=== PATIENT | male | born 1970 | race Caucasian/White ===

== ENCOUNTER → 2019-11-23 10:06 | Outpatient (CLI) | payer BC, SELFPAY ==
--- NOTE | 2019-11-23 10:16 | XR_ITS ---
PROCEDURE: XR ANKLE RT MIN 3V CLINICAL INDICATION: RT ANKLE PAIN Posttraumatic pain and swelling COMPARISON: No exams were available for comparison FINDINGS: No obvious fracture or dislocation. There is a mildly prominent posterior talar process. Soft tissue swelling is present at the lateral malleolar region. IMPRESSION: Soft tissue swelling laterally otherwise negative Dictated by: Johnson Healy MD 11/23/2019 11:02 Electronically signed by Johnson Healy MD in [place] 11/23/2019 11:02
== END ==
PROVIDERS: PCP Nurse Practitioner Family; Visit Provider Nurse Practitioner Family
DX: M25.571 Pain in right ankle and joints of right foot (principal)
CPT/HCPCS: 73610

== ENCOUNTER → 2020-02-18 17:29 | Outpatient (CLI) | payer BC, SELFPAY ==
[2020-02-19 14:07] LABS: Coronavirus 19 IgM Antibody Negative (Negative)
[2020-02-19 14:17] LABS: Coronavirus 19 IgG Antibody Positive (Negative)
[2020-02-20 15:40] LABS: Covid-19 Nasal PCR Sendout Lex Positive
== END ==
PROVIDERS: PCP Internal Medicine Adolescent Medicine; Visit Provider Internal Medicine Adolescent Medicine
DX: U07.1 COVID-19 (principal); Z20.828 Contact with and (suspected) exposure to other viral communicable diseases
CPT/HCPCS: 36415; 86328; U0004

== ENCOUNTER → 2020-06-10 17:05 | Outpatient (CLI) | payer BC, SELFPAY ==
--- NOTE | 2020-06-10 17:15 | CT_ITS ---
PROCEDURE: CT ANGIO CHEST CLINCIAL INDICATION: SHORTNESS OF BREATH, TACHYCARDIA chest pressure, soa, tachycardia since this morning COMPARISON: CT REPEAT VIEW CT from 06/10/2020 TECHNIQUE: IV Contrast: 70ML Isovue 370 Axial images obtained with sagittal and coronal reformats. All CT scans at the facility use one or more dose reduction, viz: automated exposure control, ma/kV adjustment per patient size (including targeted exams where dose is matched to indication, i.e. head), or iterative reconstruction technique. FINDINGS: HEART AND MEDIASTINAL STRUCTURES: There is no evidence of aortic aneurysm or dissection. No evidence of central pulmonary embolus. The peripheral pulmonary arteries are not well opacified. No mediastinal or hilar mass. Coronary artery calcification is noted. The patient was asked to return for additional imaging. On repeat exam the pulmonary artery opacification with similar. LUNGS AND PLEURAL SPACES: There are mild atelectatic or fibrotic the changes in the left lung base BONY STRUCTURES: No acute bony abnormalities apparent. UPPER ABDOMEN: The right gastric artery arises from the aorta as a separate branch. ADDITIONAL FINDINGS: No other significant abnormalities. IMPRESSION: The no acute finding. No evidence of pulmonary embolus aortic aneurysm or dissection. The peripheral pulmonary arteries are not well opacified however, no central pulmonary embolus is evident. Coronary artery calcifications are noted. Dictated by: Johnson Healy MD 06/11/2020 05:38 Johnson Healy MD in [place] 06/11/2020 05:38
[2020-06-10 18:40] LABS: Basophils # 0.1 K/mm3 (0-0.2); Basophils % 0.5 % (0.1-2.0); Eosinophils # 0.2 K/mm3 (0.0-0.4); Eosinophils % 1.1 % (0.1-12.0); Hematocrit 52.9 % (42.0-52.0); Hemoglobin 17.3 g/dL (14.1-18.0); Lymphocytes # 2.4 K/mm3 (0.7-4.5); Lymphocytes % 17.7 % (10-50); Mean Corpuscular HGB Conc 32.6 g/dL (31.8-35.4); Mean Corpuscular Hemoglobin 29.1 pg (27.0-31.2); Mean Corpuscular Volume 89.1 fl (80-94); Mean Platelet Volume 7.7 fl (7.4-10.4); Monocytes # 0.7 K/mm3 (0.1-1.0); Neutrophils # 10.4 K/mm3 (1.8-7.8); Neutrophils % 75.7 % (37.0-80.0); Platelet Count 308 K/mm3 (142-424); Red Blood Count 5.94 M/mm3 (4.60-6.20); Red Cell Distribution Width 13.7 % (11.5-17.5); White Blood Count 13.7 K/mm3 (4.8-10.8)
[2020-06-10 19:37] LABS: Erythrocyte Sedimentation Rate 1 mm/hr (0-15)
[2020-06-10 19:44] LABS: Alanine Aminotransferase 33 U/L (12-78); Albumin Level 4.3 g/dl (3.5-5.0); Albumin/Globulin Ratio 1.6 (1.1-1.8); Alkaline Phosphatase 113 U/L (38-126); Anion Gap 16.7 mEq/L (5-15); Aspartate Amino Transferase 26 U/L (17-59); Bilirubin,Total 0.8 mg/dl (0.2-1.3); Blood Urea Nitrogen 15 mg/dl (9-20); Calcium 9.3 mg/dl (8.4-10.2); Carbon Dioxide 29 mmol/L (22.0-30.0); Chloride 99 mmol/L (98-107); Estimated Glomerular Filt Rate 90 ml/min (>60); GFR (African American) 109 ML/MIN (>60); Globulin 2.7 g/dL (1.3-3.2); Glucose 104 mg/dl (74-100); Potassium 5.7 mmoL/L (3.5-5.1); Sodium 139 mmol/L (136-145)
[2020-06-10 20:09] LABS: D-Dimer 0.48 ug/mL (0.15-8.0)
== END ==
PROVIDERS: PCP Internal Medicine Adolescent Medicine; Visit Provider Internal Medicine Adolescent Medicine
DX: R06.02 Shortness of breath (principal); R00.0 Tachycardia, unspecified
CPT/HCPCS: 36415; 71275; 80053; 85025; 85378; 85651; Q9967

== ENCOUNTER → 2020-09-27 13:21 | Outpatient (CLI) | payer BC, OTHER, SELFPAY ==
[2020-09-27 14:32] LABS: Coronavirus 19 IgG Antibody Positive (Negative); Coronavirus 19 IgM Antibody Negative (Negative)
== END ==
PROVIDERS: PCP Internal Medicine Adolescent Medicine; Visit Provider Internal Medicine Gastroenterology
DX: Z01.812 Encounter for preprocedural laboratory examination (principal)
CPT/HCPCS: 36415; 86328

== ENCOUNTER 2020-09-29 08:20 | Day surgery (SDC) | payer BC, OTHER, SELFPAY ==
[2020-09-23 10:38] VITALS: BMI 33.9
[2020-09-29 08:44] VITALS: BP 138/90; PULSE 80; RESP 16; TEMP 36.4; O2SAT 98
--- NOTE | 2020-09-29 09:17 | HMH.PROC ---
[facility] Procedure Note Procedure Note:: Upper Endoscopy Procedure Report: Esophagogastroduodenoscopy with cold biopsies and TTS balloon dilation Endoscopost: Jarvis Ko II, MD Referring Physician: Raymond Devine M.D. Date of Procedure: September 29, 2020 Equipment: Olympus GIF 190 standard upper endoscope Sedation: MAC sedation Indications: Mr. Rodrigues is a 49-year-old gentleman with dysphagia. He does feel that after eating certain foods they will get hung in the lower retrosternal region or epigastrium. He does have chronic heartburn and reflux for which he takes omeprazole 20 mg by mouth daily (OTC). This does control his symptoms. He does get some bloating and belching. This is his first upper endoscopy. Procedure: Prior to the procedure, a history and physical exam was performed, and patient's medications and allergies were reviewed. The risks, benefits and alternatives of the sedation and procedure were discussed with the patient. All questions were answered and informed consent was obtained. The patient was brought to the procedure room. Patient identification and proposed procedure were verified by the physician and the nurse. The patient was placed in a left lateral decubitus position and the scope was passed under direct vision. Throughout the procedure, the patient's blood pressure, pulse, and oxygen saturations were monitored continuously. The upper GI endoscopy was accomplished without difficulty. The patient tolerated the procedure well. Findings: The scope was passed directly into the upper esophagus and advanced to the third portion of the duodenum. The post bulbar duodenum and duodenal bulb were normal with normal mucosa and conniventes. The scope was withdrawn through a normal duodenal bulb and pylorus into the stomach. There was some bile reflux with linear reactive gastropathy of the antrum and body of the stomach. The remainder of the fundus of the stomach were grossly normal. Upon retroflexion there was a very small sliding 1 to 2 cm hiatal hernia. 2 biopsies were taken in the antrum and along the lesser curvature for histology to rule out gastritis and/or H pylori. The scope was then withdrawn into the esophagus. There was a serrated Z-line but no evidence of reflux esophagitis or Piedra's. Biopsies were taken at the GE junction. There were tertiary contractions and evidence of mild to moderate esophageal dysmotility. The entire esophagus was dilated to 60 Malaysian/20 mm with a TTS hydrostatic balloon. The remainder of the esophageal mucosa was normal. Impression: 1. Nonerosive GERD with moderate esophageal dysmotility and very small sliding (1 to 2 cm) hiatal hernia 2. Mild linear reactive gastropathy Plan: I will follow-up the biopsies. I do feel that the patient has primarily functional GERD created by gas pressure gradients. I do feel that he has some obstipation related symptoms. We will discuss treatment options. I will proceed with screening colonoscopy.
[2020-09-29 09:26] VITALS: O2SAT 97
--- NOTE | 2020-09-29 09:58 | P.PCN_ITS ---
[facility] Procedure Note Procedure Note:: Colonoscopy Procedure Report: Colonoscopy with cold biopsies and cold snare polypectomy Endoscopist: Jarvis Ko II, MD Referring physician: Raymond Devine M.D. Date of Procedure: September 29, 2020 Equipment: Olympus 190 variable stiffness pediatric colonoscope Sedation: MAC sedation Indication: Mr. Rodrigues is a 49-year-old gentleman who is here for initial screening colonoscopy. He does state that his brother had colon polyps. He reports no abdominal pain, weight loss, change in his bowel habits or rectal bleeding. He reports no family history of colon cancer. With his Achilles tendon repair a couple of months ago, he did have some brief constipation from the pain medication. At that time he had some minor hemorrhoidal bleeding. Procedure: Prior to the procedure, a history and physical exam was performed, and patient's medications and allergies were reviewed. The risks, benefits and alternatives of the sedation and procedure were discussed with the patient. All questions were answered and informed consent was obtained. The patient was brought to the procedure room. Patient identification and proposed procedure were verified by the physician and the nurse. The patient was placed in a left lateral decubitus position and the scope was passed under direct vision. Throughout the procedure, the patient's blood pressure, pulse, and oxygen saturations were monitored continuously. The colonoscopy was accomplished without difficulty. The patient tolerated the procedure well. Findings: On digital rectal examination there was normal rectal tone. There were no external hemorrhoids. The prostate 2-3+ was moderately firm (especially left upper margin) with mild asymmetry and no nodules. The colonoscope was introduced through the anal canal to the rectum and advanced to the cecum. The ileocecal valve and appendiceal orifice were identified. The scope was advanced a short distance into the ileum which did have a couple of aphthous erosions distally (possible NSAID enteropathy) and cold biopsies were taken from the ileum. The scope was then withdrawn into the colon. The cecum, ascending and transverse colon and mucosa were grossly normal. There were scattered diverticuli throughout the descending and sigmoid colon (LEFT colon). There were 2 polyps in the rectosigmoid that were 3 and 4 mm and both removed via cold snare polypectomy. The rectum itself was normal. Upon retroflexion within the rectum there were grade 1-2 internal hemorrhoids. The preparation was fair to good throughout with Sibley Preparation Score of 7 out of 9. There was some fiber plant residue that impaired visualization of a couple of areas. The cecal time was 13 minutes. Impression: 1. Diminutive colonic polyps x2?rule out hyperplastic polyps 2. Left-sided diverticulosis 3. Grade 1-2 internal hemorrhoids 4. Firm/asymmetry left upper lobe prostate Plan: I will follow up the polyp histology. If the polyps are hyperplastic, he will not require surveillance colonoscopy again for 10 years. I would encourage bulk fiber supplementation on a maintenance basis. I would recommend PSA testing today and routine digital RE for screening.
[2020-09-29 10:01] VITALS: BP 85/55; PULSE 77; RESP 18; TEMP 36.2; O2SAT 95
--- NOTE | 2020-09-29 10:09 | HMH.ANESCL ---
[facility] Anesthesia Checklist - Patient Identification Patient Identification: Arm Band - Structural Data Admitted From: Home Planned Operative Procedure/s: egd/colonoscopy Consent for Planned Operative Procedure(s) Verified: Yes Verified Documents: Surgical Consent, History and Physical - NPO Status Verified Time NPO: 00:00 - Additional verifications Anesthesia Reactions: No - Airway Assessment C-Spine Mobility Assessed: Yes (mp2) TMJ Mobility Assessed: Yes Dentition: Good Dentition - Neurological Assessment Level of Consciousness: Awake, Alert - Anesthesia Plan Anesthesia Risk discussed: Yes Anesthesia Plan: Verified ASA Class: II Anesthesia Type: MAC [facility] History I have reviewed the patient's past medical history: Yes Medical History: Reports:: Gastroesophageal Reflux Disease(GERD), Hyperlipidemia, Hypertension, Lung Disease (karthik-cpap hs) Denies:: Cancer, Diabetes Mellitus Type 1, Diabetes Mellitus Type 2, Internal Pacemaker, MRSA, Seizures *Have you ever received a pneumonia vaccine?: No *Have you received a flu vaccine this season?: Yes Other Medical History: Reports: Hypothyroidism Anesthesia experience/problems:: nac Other Surgeries: Yes: Other. No: Pacemaker Amputation: No Fractures: Yes (coccyx ) - *Social History Last grade of school completed: Some college Smoking Status: Light tobacco smoker Tobacco Type: smokeless tobacco # Packs/Day (cigarettes): 1 Alcohol Intake: current Alcohol Intake Frequency:: a few times a week Substance Use Type: denies use *Occupational Status:: employed Housing: house Household Members: spouse, family *Travel in the last 8 weeks: None Family Hx:: Diabetes, Cancer, Hyperlipidemia, Hypertension
[2020-09-29 10:11] VITALS: BP 92/66; PULSE 62; RESP 18; O2SAT 95
[2020-09-29 10:21] VITALS: BP 96/66; PULSE 61; RESP 18; O2SAT 100
[2020-09-29 10:44] VITALS: BP 104/78; PULSE 65; RESP 18; O2SAT 100
== END 2020-09-29 10:44 | disposition home or self-care (01) ==
LOC: OUTP 08:22
PROVIDERS: PCP Internal Medicine Adolescent Medicine; Visit Provider Internal Medicine Gastroenterology
PROC: 0DJ08ZZ Inspection of Upper Intestinal Tract, Via Natural or Artificial Opening Endoscopic (ICD-10-PCS; CPT 43235; principal; 2020-09-29 09:30)
DX: Z12.11 Encounter for screening for malignant neoplasm of colon (principal); K63.5 Polyp of colon; K57.30 Diverticulosis of large intestine without perforation or abscess without bleeding; K64.0 First degree hemorrhoids; K21.9 Gastro-esophageal reflux disease without esophagitis; K22.4 Dyskinesia of esophagus; K44.9 Diaphragmatic hernia without obstruction or gangrene; K31.9 Disease of stomach and duodenum, unspecified; Z83.71 Family history of colonic polyps; I10 Essential (primary) hypertension; E78.5 Hyperlipidemia, unspecified; G47.33 Obstructive sleep apnea (adult) (pediatric)
CPT/HCPCS: 43239; 43249; 45380; 45385; C1726

== ENCOUNTER 2020-12-18 09:00 | Outpatient (RCR) | payer BC, OTHER, SELFPAY ==
--- NOTE | 2020-10-21 10:25 | HMH.PTOPEV ---
PT Outpatient Evaluation Rehab PT Outpatient Evaluation Start: 10/21/20 08:38 Freq: Status: Active Protocol: Document 10/21/20 08:38 RAQUEL (Rec: 10/21/20 10:25 PDESEROUX [id number]) Electronically Signed By Pedro Mckeon, SANDEEP 10/21/20 08:38 Outpatient Therapy Subjective History Subjective History Pt. is a 49 year old male who presents to outpatient PT clinic w/ complaints of subacute and constant LLE achilles tendon and ft. P! s/p LLE achilles tendon repair on 08/13/20. Pt. reports SEVERINO through wear and tear overtime. Pt. reports donning a cast post surgery until 09/22/20, then ambulating w/ a single crutch/ SPC. Pt. reports currently ambulating w/ a single crutch PRN at this time. Pt. reports symptom worsen during the night and in the morning getting out of bed. Pt. reports symptom relief w/ activity including ambulation, but states increased stiffness w/ prolonged ambulation. Pt. RTMD 11/10/20. Current medications include Aleve, Synthroid, Crestor, Vyvanse, fish oil, and a multi -vitamin. PMH includes Hypothyroidism and Hyperlipidemia, denies cancer/ pacemaker. Chief Complaint Pain,Stiff,Swelling Symptom Type Ache,Throb,Sharp,Tingling, Shooting Symptoms Relieved By Rest/Positioning,Brace/Support ,OTC Meds,Activity Symptoms Aggravated By Sitting,Standing,Physical Activity,Twisting,Walking Prior Functional Limitations None Current Functional Limitations Housework,Sleeping,Standing, Sitting,Squatting,Recreation Activity,Walking,Stairs, Balance Symptom Description Constant but Variable Level of pain today (0-10) 1 Pain scale - at its best (0-10) 1 Pain scale - at its worst (0-10) 6 Ankle/Foot Eval Gait Observation General Gait Pattern Observation Antalgic Gait,Decrease Weight
== END 2021-01-19 17:00 | disposition home or self-care (01) ==
LOC: PT.CARL 09:00
PROVIDERS: PCP Internal Medicine Adolescent Medicine; Visit Provider Internal Medicine Adolescent Medicine
DX: M76.62 Achilles tendinitis, left leg; Z98.890 Other specified postprocedural states
CPT/HCPCS: 97010; 97014; 97033; 97035; 97110; 97112; 97140; 97163; 97164; G0283

== ENCOUNTER → 2021-02-26 18:48 | Outpatient (CLI) | payer BC, OTHER, SELFPAY ==
[2021-02-26 19:43] LABS: Alanine Aminotransferase 39 U/L (12-78); Albumin Level 4.2 g/dl (3.5-5.0); Albumin/Globulin Ratio 1.6 (1.1-1.8); Alkaline Phosphatase 111 U/L (38-126); Anion Gap 13.8 mEq/L (5-15); Aspartate Amino Transferase 31 U/L (17-59); Bilirubin,Total 0.8 mg/dl (0.2-1.3); Blood Urea Nitrogen 12 mg/dl (9-20); Calcium 9.1 mg/dl (8.4-10.2); Carbon Dioxide 28 mmol/L (22.0-30.0); Chloride 103 mmol/L (98-107); Cholesterol 159 mg/dl (140-200); Estimated Glomerular Filt Rate 90 ml/min (>60); GFR (African American) 109 ML/MIN (>60); Globulin 2.7 g/dL (1.3-3.2); Glucose 99 mg/dl (74-100); HDL Cholesterol 40 mg/dl (40-60); Potassium 4.8 mmoL/L (3.5-5.1); Sodium 140 mmol/L (136-145); Total Protein,Serum 6.9 g/dl (6.3-8.2); Triglycerides 106 mg/dl (30-150); VLDL Cholesterol 21 mg/dL (0-40)
[2021-02-26 19:54] LABS: Direct LDL Cholesterol 97.13 mg/dL (100-129)
[2021-02-26 20:14] LABS: Thyroid Stimulating Hormone 7.26 uIU/mL (0.465-4.68)
== END ==
PROVIDERS: Visit Provider Internal Medicine Adolescent Medicine
DX: E03.9 Hypothyroidism, unspecified (principal); E78.5 Hyperlipidemia, unspecified
CPT/HCPCS: 80053; 80061; 84443

== ENCOUNTER → 2021-05-28 17:43 | Outpatient (CLI) | payer BC, OTHER, SELFPAY ==
[2021-05-28 20:22] LABS: Thyroid Stimulating Hormone 2.14 uIU/mL (0.465-4.68)
== END ==
PROVIDERS: Visit Provider Internal Medicine Adolescent Medicine
DX: E03.9 Hypothyroidism, unspecified (principal)
CPT/HCPCS: 84443

== ENCOUNTER → 2022-10-28 23:22 | Outpatient (CLI) | payer BC, SELFPAY ==
[2022-10-28 16:49] LABS: Basophils % 0.3 % (0.1-2.0); Eosinophils # 0.2 K/mm3 (0.0-0.4); Eosinophils % 1.7 % (0.1-12.0); Hematocrit 50.4 % (42.0-52.0); Hemoglobin 16.4 g/dL (14.1-18.0); Lymphocytes % 22.2 % (10-50); Mean Corpuscular HGB Conc 32.4 g/dL (31.8-35.4); Mean Corpuscular Hemoglobin 28.5 pg (27.0-31.2); Mean Corpuscular Volume 87.8 fl (80-94); Mean Platelet Volume 9.9 fl (7.4-10.4); Monocytes # 0.5 K/mm3 (0.1-1.0); Monocytes % 4.9 % (1.7-9.3); Neutrophils # 6.5 K/mm3 (1.8-7.8); Neutrophils % 70.9 % (37.0-80.0); Platelet Count 300 K/mm3 (142-424); Red Blood Count 5.75 M/mm3 (4.60-6.20); Red Cell Distribution Width 13.7 % (11.5-17.5); White Blood Count 9.2 K/mm3 (4.8-10.8)
[2022-10-28 17:16] LABS: Alanine Aminotransferase 37 U/L (12-78); Albumin Level 4.3 g/dl (3.5-5.0); Albumin/Globulin Ratio 1.7 (1.1-1.8); Alkaline Phosphatase 105 U/L (38-126); Anion Gap 12.3 mEq/L (5-15); Aspartate Amino Transferase 32 U/L (17-59); Bilirubin,Total 0.8 mg/dl (0.2-1.3); Blood Urea Nitrogen 17 mg/dl (9-20); Calcium 8.9 mg/dl (8.4-10.2); Carbon Dioxide 23 mmol/L (22.0-30.0); Chloride 103 mmol/L (98-107); Chol/HDL Ratio 5.4 (1-3.5); Cholesterol 196 mg/dl (140-200); Estimated Glomerular Filt Rate 119 ml/min (>60); GFR (African American) 144 ML/MIN (>60); Globulin 2.6 g/dL (1.3-3.2); Glucose 98 mg/dl (74-100); HDL Cholesterol 36 mg/dl (40-60); Potassium 4.3 mmoL/L (3.5-5.1); Sodium 134 mmol/L (136-145); Total Protein,Serum 6.9 g/dl (6.3-8.2); Triglycerides 89 mg/dl (30-150); VLDL Cholesterol 18 mg/dL (0-40)
[2022-10-28 17:27] LABS: Direct LDL Cholesterol 126.64 mg/dL (100-129)
[2022-10-28 17:34] LABS: 25-OH Vitamin D, Total 50.9 ng/mL (30-100)
[2022-10-28 17:47] LABS: Thyroid Stimulating Hormone 1.49 uIU/mL (0.465-4.68)
[2022-10-28 20:03] LABS: Hemoglobin A1C 8.1 % (4.0-6.0)
== END ==
PROVIDERS: PCP Family Medicine; Visit Provider Family Medicine
DX: Z00.00 Encounter for general adult medical examination without abnormal findings (principal); E03.9 Hypothyroidism, unspecified; R73.03 Prediabetes; E78.5 Hyperlipidemia, unspecified; R30.0 Dysuria; E66.9 Obesity, unspecified; Z68.36 Body mass index [BMI] 36.0-36.9, adult; Z12.5 Encounter for screening for malignant neoplasm of prostate
CPT/HCPCS: 80053; 80061; 82306; 83036; 84443; 85025; G0103

== ENCOUNTER → 2022-11-30 23:32 | Outpatient (CLI) | payer BC, SELFPAY ==
[2022-11-30 17:37] LABS: Hemoglobin A1C 5.4 % (4.0-6.0)
== END ==
PROVIDERS: PCP Family Medicine; Visit Provider Family Medicine
DX: R73.03 Prediabetes (principal)
CPT/HCPCS: 83036

== ENCOUNTER → 2023-04-13 06:40 | Outpatient (CLI) | payer BC, SELFPAY ==
[2023-04-13 16:58] LABS: Basophils % 0.3 % (0.1-2.0); Eosinophils # 0.1 K/mm3 (0.0-0.4); Eosinophils % 0.9 % (0.1-12.0); Hematocrit 52.1 % (42.0-52.0); Hemoglobin 16.1 g/dL (14.1-18.0); Lymphocytes # 2.4 K/mm3 (0.7-4.5); Lymphocytes % 23.7 % (10-50); Mean Corpuscular HGB Conc 30.8 g/dL (31.8-35.4); Mean Corpuscular Hemoglobin 27.7 pg (27.0-31.2); Mean Corpuscular Volume 89.9 fl (80-94); Mean Platelet Volume 9.7 fl (7.4-10.4); Monocytes # 0.6 K/mm3 (0.1-1.0); Monocytes % 5.6 % (1.7-9.3); Neutrophils # 7.1 K/mm3 (1.8-7.8); Neutrophils % 69.6 % (37.0-80.0); Platelet Count 315 K/mm3 (142-424); Red Cell Distribution Width 13.7 % (11.5-17.5); White Blood Count 10.2 K/mm3 (4.8-10.8)
[2023-04-13 17:00] LABS: Chloride 109 mmol/L (98-107); Potassium 4.8 mmoL/L (3.5-5.1); Sodium 142 mmol/L (136-145)
[2023-04-13 17:02] LABS: Alanine Aminotransferase 34 U/L (12-78); Albumin Level 3.8 g/dl (3.5-5.0); Alkaline Phosphatase 110 U/L (38-126); Aspartate Amino Transferase 39 U/L (17-59); Bilirubin,Total 0.5 mg/dl (0.2-1.3); Blood Urea Nitrogen 13 mg/dl (9-20); Estimated Glomerular Filt Rate 89 ml/min (>60); GFR (African American) 108 ML/MIN (>60)
[2023-04-13 17:03] LABS: Albumin/Globulin Ratio 1.4 (1.1-1.8); Anion Gap 13.8 mEq/L (5-15); Calcium 8.8 mg/dl (8.4-10.2); Carbon Dioxide 24 mmol/L (22.0-30.0); Chol/HDL Ratio 4.3 (1-3.5); Cholesterol 139 mg/dl (140-200); Globulin 2.7 g/dL (1.3-3.2); Glucose 112 mg/dl (74-100); HDL Cholesterol 32 mg/dl (40-60); Total Protein,Serum 6.5 g/dl (6.3-8.2); Triglycerides 103 mg/dl (30-150); VLDL Cholesterol 21 mg/dL (0-40)
[2023-04-13 17:14] LABS: Direct LDL Cholesterol 77.55 mg/dL (100-129)
[2023-04-13 17:50] LABS: Hemoglobin A1C 5.5 % (4.0-6.0)
[2023-04-13 18:48] LABS: Thyroid Stimulating Hormone 1.48 uIU/mL (0.465-4.68)
--- OUTSIDE RECORDS SUMMARY | 2023-04-27 06:43 | XMS_ITS | Patient Health Record ---
Author Name Unknown Organization [facility] D [place] Address [address] [place] [address] Care Team Providers Care Sample Mounter Name Role Phone Raymond Devine Primary Care Provider ALLERGIES No Known Allergies RESULTS Component Value Reference Range Notes CBC With Platelet And Differ ential Reviewed date:05/14/2022 10:56:18 AM Interpretation: Performing Lab: Notes/Report: Test performed by [facility] [address] [place] [address] , [address], [place] [address] Jono Mckeon MD, [facility] CLIA: [id number] WBC 9.2 3.8-11.5 K/uL Red Blood Cell Count (RBC) 5.83 4.20-5.70 M/mm 3 Hemoglobin (Hgb) 16.6 13.1-17.5 gm/dL Hematocrit (HCT) 48.8 39.0-51.0 % MCV 83.7 79.0-99.0 fL MCH 28.5 26.9-35.0 pg MCHC 34.0 30.4-34.8 g/dL RDW 39.7 38.2-53.0 fL Platelet Count 341 137-397 K/cumm Neutrophils Automated 68.9 41.0-77.0 % Lymphocytes Automated 21.9 14.0-48.0 % Monocytes Automated 7.3 4.0-13.0 % Eosinophils Automated 1.3 0.0-8.0 % Basophils Automated 0.4 0.0-1.5 % Immature Granulocyte Automated 0.2 0.0-1.0 % Comprehensive Metabolic Pane l (CMP) Reviewed date:05/14/2022 10:56:18 AM Interpretation: Performing Lab: Notes/Report: Test performed by [facility] [address] [place] [address]
== END ==
PROVIDERS: PCP Family Medicine; Visit Provider Family Medicine
DX: R73.03 Prediabetes (principal); E78.5 Hyperlipidemia, unspecified; E03.9 Hypothyroidism, unspecified
CPT/HCPCS: 80053; 80061; 83036; 84443; 85025

== ENCOUNTER 2023-11-29 10:18 | Outpatient (CLI) | payer BC, SELFPAY ==
[2023-11-29 21:41] LABS: Hemoglobin A1C 5.9 % (4.0-6.0)
== END 2023-11-29 23:59 | disposition home or self-care (01) ==
LOC: LAB.DROPOF 11-30 10:19
PROVIDERS: PCP Family Medicine; Visit Provider Family Medicine
DX: R73.03 Prediabetes (principal)
CPT/HCPCS: 83036

== ENCOUNTER 2024-03-21 09:42 | Outpatient (CLI) | payer BC, SELFPAY ==
[2024-03-21 17:25] LABS: Alanine Aminotransferase 29 U/L (12-78); Albumin Level 3.9 g/dl (3.5-5.0); Albumin/Globulin Ratio 1.3 (1.1-1.8); Alkaline Phosphatase 92 U/L (38-126); Anion Gap 11.6 mEq/L (5-15); Aspartate Amino Transferase 32 U/L (17-59); Bilirubin,Total 0.4 mg/dl (0.2-1.3); Blood Urea Nitrogen 8 mg/dl (9-20); Calcium 9.2 mg/dl (8.4-10.2); Carbon Dioxide 26 mmol/L (22.0-30.0); Chloride 107 mmol/L (98-107); Chol/HDL Ratio 3.3 (1-3.5); Cholesterol 115 mg/dl (140-200); Estimated Glomerular Filt Rate 141 ml/min (>60); GFR (African American) 171 ML/MIN (>60); Globulin 2.9 g/dL (1.3-3.2); Glucose 98 mg/dl (74-100); HDL Cholesterol 35 mg/dl (40-60); Potassium 4.6 mmoL/L (3.5-5.1); Sodium 140 mmol/L (136-145); Total Protein,Serum 6.8 g/dl (6.3-8.2); Triglycerides 81 mg/dl (30-150); VLDL Cholesterol 16 mg/dL (0-40)
[2024-03-21 17:36] LABS: Direct LDL Cholesterol 64.82 mg/dL (100-129)
[2024-03-21 17:56] LABS: Thyroid Stimulating Hormone 0.65 uIU/mL (0.465-4.68)
== END 2024-03-21 23:59 | disposition home or self-care (01) ==
LOC: LAB.DROPOF 03-22 09:42
PROVIDERS: PCP Family Medicine; Visit Provider Family Medicine
DX: E78.5 Hyperlipidemia, unspecified (principal)
CPT/HCPCS: 80053; 80061; 84443

== ENCOUNTER 2025-04-25 15:00 | Outpatient (CLI) | payer BC, SELFPAY ==
--- OUTSIDE RECORDS SUMMARY | 2024-10-27 17:30 | XMS_ITS ---
Author Organization [facility] D [place] Address [address] [facility] [address] [place] [address] Care Team Providers Care Flotation Operator Name Role Phone Raymond Devine Primary Care Provider Migration, Provider Unavailable Unavailable [facility] Encounter Medications Medication SIG (Take, Route, Frequency, Duration) Notes Start Date End Date Status Multivitamin MULTIPLE VITAMINS 1 CAP(S) ORALLY ONCE A DAY; Duration: 30 DAY(S) *Please review and pick correct [facility]ati [facility]. If intended option is not shown, discontinue and re-order from Quick Search* Active Fish Oil 1000 MG PO QD *Please review and pick correct strength-formulati on from [employer] options. If intended option is not shown, discontinue and re-order from Quick Search* Active Flonase Allergy Relief 50 MCG/ACT 1 spray(s) intranasally once a day Active FLEXERIL 10 MG 1 TAB(S) ORALLY 3 TIMES A DAY PRN MUSCLE SPASM; Duration: 5 DAY(S) prn *Please review for potential replacement for e-prescription and drug interaction check* 01/13/2021 Active Aspirin 81 MG 1 tab(s) orally once a day; Duration: 30 day(s) Active Livalo 2 MG 1 TAB ORAL ONCE DAILY; Duration: 30 DAYS *Please review and pick correct strength-formulati on from [employer] options. If intended option is not shown, discontinue and re-order from Quick Search* 05/14/2022 Active Levothyroxine Sodium 100 MCG 1 tab(s) orally once a day; Duration: 90 days Active Red Yeast Rice 600 MG 2 cap(s) orally once a day; Duration: 30 day(s) Active Concerta 54 MG TAKE 1 TABLET BY MOUTH EVERY MORNING 30 orally once a day (in the morning); Duration: 30 day(s) 09/23/2022 Active Omeprazole 20 MG 1 cap(s) orally once a day; Duration: 30 day(s) Active oxyBUTYnin Chloride ER 5 MG 1 tab(s) orally once a day; Duration: 90 days Active Encounters Encounter Location Date Provider Diagnosis [facility] [place] [address] [place], [place] [address] 10/27/2024 Provider Migration Plan Of Treatment Medication Medication Name Sig Start Date Stop Date Notes Livalo 2 MG 1 TAB ORAL ONCE DAILY; Duration: 30 DAYS 05/14/2022 *Please review and pick correct strength-formulation from [employer] options. If intended option is not shown, discontinue and re-order from Quick Search* Levothyroxine Sodium 100 MCG 1 tab(s) orally once a day; Duration: 90 days Concerta 54 MG TAKE 1 TABLET BY MOUTH EVERY MORNING 30 orally once a day (in the morning); Duration: 30 day(s) 09/23/2022 Progress Notes * Rudolph IRBY CDOB:[birth year] (54 yo M)Acc No.[id number]:10/27/2024 Patient: Rudolph WELLINGTON Provider: Maliha price Migration :1970 A ge:53 Y S ex:Male Date:10/27/2024 Address:[address] [place] [address] [place], [id number] Pcp:Raymond Devine Subjective: * Chief Complaints: * 1 . Multum To Medispan Conversion Encounter. * Medical History: * Medications: T aking Red Yeast Rice 600 MG Capsule 2 cap(s) orally once a day , Taking Flonase Allergy Relief 50 MCG/ACT Suspension 1 spray(s) intranasally once a day , Taking Fish Oil 1000 MG PO QD , Notes to Pharmacist: *Please review and pick correct strength-formulation from Med[employer]pan options. If intended option is not shown, discontinue and re-order from Quick Search*, Taking Multivitamin MULTIPLE VITAMINS CAPSULE 1 CAP(S) ORALLY ONCE A DAY , Notes to Pharmacist: *Please review and pick correct strength-formulation from [employer] options. If intended option is not shown, discontinue and re-order from Quick Search*, Taking Aspirin 81 MG Tablet Delayed Release 1 tab(s) orally once a day , Taking FLEXERIL 10 MG TABLET 1 TAB(S) ORALLY 3 TIMES A DAY PRN MUSCLE SPASM , Notes to Pharmacist: prn *Please review for potential replacement for e-prescription and drug interaction check*, Taking oxyBUTYnin Chloride ER 5 MG Tablet Extended Release 24 Hour 1 tab(s) orally once a day , Taking Omeprazole 20 MG Capsule Delayed Release 1 cap(s) orally once a day Objective: * Vitals: Assessment: Plan: * Treatment: * * Electronic signature of Manju roper Migration on 04/26/2025 at 10:47 AM EDT Sign off status: Pending * Provider: Maliha price Migration Date: 0 10/27/2024 Generated for Elizabeth avelar/Lauro/Juan on: 10:47 AM EDT
[2025-04-25 20:30] LABS: Hematocrit 45.6 % (42.0-52.0); Hemoglobin 14.7 g/dL (14.1-18.0); Immature Granulocytes % 0.4 %; Mean Corpuscular HGB Conc 32.2 g/dL (31.8-35.4); Mean Corpuscular Hemoglobin 28.1 pg (27.0-31.2); Mean Corpuscular Volume 87.0 fl (80-94); Nucleated Red Blood Cells % 0 %; Platelet Count 261 K/mm3 (142-424); Red Blood Count 5.24 M/mm3 (4.60-6.20); Red Cell Distribution Width-SD 43.1 fL; White Blood Count 7.8 K/mm3 (4.8-10.8)
[2025-04-25 21:00] LABS: Alanine Aminotransferase 48 U/L (12-78); Albumin Level 3.8 g/dl (3.5-5.0); Albumin/Globulin Ratio 1.7 (1.1-1.8); Alkaline Phosphatase 122 U/L (38-126); Anion Gap 17.1 mEq/L (5-15); Aspartate Amino Transferase 46 U/L (17-59); Bilirubin,Total 0.5 mg/dl (0.2-1.3); Blood Urea Nitrogen 8 mg/dl (9-20); Calcium 8.7 mg/dl (8.4-10.2); Carbon Dioxide 23 mmol/L (22.0-30.0); Chloride 105 mmol/L (98-107); Creatinine,Serum 0.70 mg/dl (0.66-1.25); Estimated Glomerular Filt Rate 118 ml/min (>60); GFR (African American) 143 ML/MIN (>60); Globulin 2.3 g/dL (1.3-3.2); Glucose 116 mg/dl (74-100); Potassium 4.1 mmoL/L (3.5-5.1); Sodium 141 mmol/L (136-145); Total Protein,Serum 6.1 g/dl (6.3-8.2)
[2025-04-25 21:26] LABS: Hemoglobin A1C 5.7 % (4.0-6.0)
[2025-04-25 21:28] LABS: Thyroid Stimulating Hormone 1.04 uIU/mL (0.465-4.68)
[2025-04-25 21:46] LABS: Hepatitis C Ab Qual. W/ RFX NEGATIVE (Negative)
--- OUTSIDE RECORDS SUMMARY | 2025-04-26 10:47 | XMS_ITS | Patient Health Record ---
Author Organization [facility] D [place] Address [address] [place] [address] Care Team Providers Care Product Management Consultant Name Role Phone Raymond Devine Primary Care Provider Migration, Provider Unavailable Unavailable Allergies No Known Allergies Medications Medication SIG (Take, Route, Frequency, Duration) Notes Start Date End Date Status Livalo 2 MG 1 TAB ORAL ONCE DAILY; Duration: 30 DAYS *Please review and pick correct strength-formulati on from [employer] options. If intended option is not shown, discontinue and re-order from Quick Search* 05/14/2022 Active Multivitamin MULTIPLE VITAMINS 1 CAP(S) ORALLY ONCE A DAY; Duration: 30 DAY(S) *Please review and pick correct strength-formulati on from [employer] options. If intended option is not shown, discontinue and re-order from Quick Search* Active Fish Oil 1000 MG PO QD *Please review and pick correct strength-formulati on from [employer] options. If intended option is not shown, discontinue and re-order from Quick Search* Active Levothyroxine Sodium 100 MCG 1 tab(s) orally once a day; Duration: 90 days Active Flonase Allergy Relief 50 MCG/ACT 1 spray(s) intranasally once a day Active Red Yeast Rice 600 MG 2 cap(s) orally once a day; Duration: 30 day(s) Active Concerta 54 MG TAKE 1 TABLET BY MOUTH EVERY MORNING 30 orally once a day (in the morning); Duration: 30 day(s) 09/23/2022 Active FLEXERIL 10 MG 1 TAB(S) ORALLY 3 TIMES A DAY PRN MUSCLE SPASM; Duration: 5 DAY(S) prn *Please review for potential replacement for e-prescription and drug interaction check* 01/13/2021 Active Aspirin 81 MG 1 tab(s) orally once a day; Duration: 30 day(s) Active oxyBUTYnin Chloride ER 5 MG 1 tab(s) orally once a day; Duration: 90 days Active Omeprazole 20 MG 1 cap(s) orally once a day; Duration: 30 day(s) Active Immunizations Vaccine Route Administration Date Status Comme nts Influenza-Fluzone 3+years (NON-MEDICARE) IM Intramuscular 05/31/2017 Administered FLUZONE 6MO - OLDER IM Intramuscular 04/25/2020 Administer ed Boostrix IM Intramuscular 07/08/2020 Administered Problems Problem Type SNOMED Code ICD Code Onset Dates Problem Status W/U Status Risk Notes Problem Obese class I (finding) (061985525073342) Obesity (BMI 30.0-34.9) (E66.9) Active confirmed Problem Hypothyroidism (26676739) Hypothyroidism (acquired) (E03.9) Active confirmed Problem Hyperlipidemia (54472772) Hyperlipemia, idiopathic familial (E78.5) Active confirmed Problem Gastroesophageal reflux disease (953271527) GERD without esophagitis (K21.9) Active confirmed Problem Obstructive sleep apnea (10362508) Obstructive sleep apnea (G47.33) Active confirmed Problem Hypoglycemia (250698609) Hypoglycemia (E16.2) Active confirmed Problem Attention deficit hyperactivity disorder, predominantly inattentive type (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) Adult ADHD (F90.0) Active confirmed Problem Right shoulder strain (S46.911A) Active confirmed Problem Lower urinary tract symptoms due to benign prostatic hypertrophy (00078658884942) Benign prostatic hyperplasia with lower urinary tract symptoms (N40.1) Active confirmed Problem Tingling of skin (215482016) Tingling of skin (R20.2) Active confirmed Problem Esophageal dysphagia (75208367) Esophageal dysphagia (R13.10) Active confirmed Encounters Encounter Location Date Provider Diagnosis [facility] [place] [address] [place] [address] 10/27/2024 Provider Migration Plan Of Treatment Pending Test Test Name Order Date Urinalysis 06/17/2014 Physical Therapy 12/23/2014 Physical Therapy 10/17/2020 C-CBC 10/16/2020 C-CBC 02/01/2017 C-CBC 04/03/2020 C-CMP 04/03/2020 C-CMP 02/01/2017 C-CMP 10/16/2020 C-LIPID PANEL 04/03/2020 C-TSH 04/03/2020 C-TSH 10/16/2020 C-TSH 02/01/2017 C-PSA 10/16/2020 C-VITAMIN B12 02/01/2017 C-VITAMIN D, 1,25-DIHYDROXY 02/01/2017 C-HGBA1C 02/01/2017 C-HGBA1C 04/03/2020 Rapid Flu, A 05/13/2015 Rapid Flu, B 05/13/2015 VENIPUNCT, ROUTINE* 02/13/2016 M-D-Dimer 06/10/2020 Rapid Covid Antigen 02/23/2021 Future Test Test Name Order Date M-Comprehensive Metabolic Panel 06/24/20 M-Lipid Panel 06/24/2020 M-Thyroid Stimulating Hormone 06/24/2020 Insurance Providers Payer Name Payer Address Payer Phone Subscriber Number Group Number Insured Name Patient Relationship to Insured Coverage Start Date Coverage End Date [facility] [address] [place] [address] [id number] Rudolph Rodrigues Self - patient is the insured [facility] [address] [place] [address] [id number] Rudolph Rodrigues Self - patient is the insured Medications Administered Medication Instructions Date of Administration Dosage Notes Ceftriaxone 500 08/29/2013 1 g Triamcinolone Acetonide 40mg Injection 12/12/2020 1 mL Kenalog 08/29/2013 2 mL Kenalog 05/13/2015 1 mL Medical (General) History Medical History History ICD Code gerd ADD Chronic Right shoulder pain HLD Hypothyroidism EGD with nonerosive GERD 2-21 C-scope wtih hyperplastic polyps 2-21 Surgical History Surgery Date(Month/Year) oral left achilles 07/2020
--- OUTSIDE RECORDS SUMMARY | 2025-04-26 10:47 | XMS_ITS | Clinical Summary ---
Author Organization [facility] Address [address] [place] [address] Care Team Providers Care Firer Marine Name Role Phone Cornell Irby MD Primary Care Provider [phone]- [phone] Allergies No known active allergies Medications levothyroxine (SYNTHROID, LEVOTHROID) 75 MCG tablet Take 1 tablet by mouth Daily. Active rosuvastatin (CRESTOR) 20 MG tablet Take 1 tablet by mouth Daily. Active multivitamin with minerals (MULTIVITAMIN ADULT PO) Take 1 tablet by mouth Daily. Active [place]-3 Fatty Acids (Fish Oil) 1200 MG capsule delayed-release Take 1,400 g/day by mouth Daily. Active Vitamin D, Cholecalciferol , (CHOLECALCIFERO L) 10 MCG (400 UNIT) tablet Take 1 tablet by mouth Daily. Active omeprazole (priLOSEC) 20 MG capsule Take 1 capsule by mouth Daily. Active aspirin 81 MG EC tablet Take 1 tablet by mouth Daily. Active fluticasone (FLONASE) 50 MCG/ACT nasal spray Administer 2 sprays into the nostril(s) as directed by provider Daily. Active methylphenidate 54 MG CR tablet Take 1 tablet by mouth Every Morning 4 Active Mounjaro 2.5 MG/0.5ML solution pen-injector pen Inject 5 mg under the skin into the appropriate area as directed 1 (One) Time Per Week. LAST DOSE 08/10/24 4 Active cetirizine (zyrTEC) 10 MG tablet Take 1 tablet by mouth Daily. Active nitrofurantoin, macrocrystal-mo nohydrate, (Macrobid) 100 MG capsuleIndicati ons:Lower urinary tract symptoms (LUTS) Take 1 capsule by mouth 2 (Two) Times a Day. 14 capsule 08/21/2024 9:19 AM EST 5 Active Additional Information Patient not taking.Reported on 12/14/2024 oxybutynin XL (DITROPAN-XL) 5 MG 24 hr tabletIndicatio ns:Lower urinary tract symptoms (LUTS) Take 1 tablet by mouth Daily as needed for BLADDER SPASM 14 tablet 08/21/2024 9:19 AM EST 5 Active Additional Information Patient not taking.Reported on 12/14/2024 phenazopyridine (Pyridium) 200 MG tabletIndicatio ns:Lower urinary tract symptoms (LUTS) Take 1 tablet by mouth 3 (Three) Times a Day As Needed for Bladder Spasms. 20 tablet 08/21/2024 9:19 AM EST 5 Active Additional Information Patient not taking.Reported on 12/14/2024 Vibegron 75 MG tabletIndicatio ns:OAB (overactive bladder) Take 1 tablet by mouth Daily. 30 tablet 5 Active Mirabegron ER (MYRBETRIQ) 25 MG tablet sustained-relea se 24 hour 24 hr tabletIndicatio ns:OAB (overactive bladder) TAKE 1 TABLET BY MOUTH DAILY. 30 tablet 1 5 Active Active Problems Problem Noted Date Diagnosed Date OAB (overactive bladder) 01/04/2024 Lower urinary tract symptoms (LUTS) 01/04/2024 Urgency of urination 12/28/2023 Encounters Date Type Department Care Team Description 03/22/2025 Refill [facility] UR[facility]Y [address] [place] [address] Kd Perez MD OAB (overactive bladder) from Last 3 Months Family History Medical History Relation Name Comments Cancer Father Osmin Rodrigues Relation Name Status Comments Father Osmin Rodrigues Social History Tobacco Use Types Packs/Day Years Used Date Smoking Tobacco: Former Cigars Passive Smoke Exposure: Current Smokeless Tobacco: Current Snuff Tobacco Cessation:Ready to Q uit: Not Asked; Counseling Given: Not Answered Alcohol Use Standard Drinks/Week Comments Yes 8 (1 standard drink = 0.6 oz pur e alcohol) 2-3 times weekly Abuse Screen Answer Date Recorded Feels Unsafe at Home or Work/School no 08/21/2024 Feels Threatened by Someone no 07/26 Does Anyone Try to Keep You From Having Contact with Others or Doing Things Outside Your Home? no 08/21/2024 Physical Signs of Abuse Present no 08/21/2024 Housing Stability Answer Date Recorded Current Living Arrangements home 07/26 Potentially Unsafe Housing Conditions Not on jason e 08/21/2024 Disabilities Answer Date Recorded Difficulty Concentrating, Remembering or Making Decisions yes 08/21/2024 Difficulty Managing Errands Independently no 08/21/2024 Education Answer Date Recorded Help with school or training? Not on file Preferred Language Algerian 08/14/2024 Sex and Gender Information Value Date Recorded Sex Assigned at Not on file Legal Sex Male 2:11 PM EST Gender Identity Not on file Sexual Orientation Not on file Last Filed Vital Signs Vital Sign Reading Time Taken Comments Blood Pressure 119/90 08/21/2024 9:30 AM EST Pulse 64 08/21/2024 9:30 AM EST Temperature 36.6 C (97.8 F) 08/21/2024 9:30 AM EST Respiratory Rate 16 08/21/2024 9:15 AM EST Oxygen Saturation 93% 08/21/2024 9:30 AM EST Inhaled Oxygen Concentration - - Weight 108 kg (238 lb) 09/05/2024 10:43 AM EST Height 182.9 cm (6' 0.01 ) 09/05/2024 10:[address] Body Mass Index 32.27 09/05/2024 10:43 AM EST Plan of Treatment Upcoming Encounters Date Type Department Care Team (Late st Contact Info) Description 07/05/2025 10:00 AM EST Office Visit [facility] [address] [facility] [address] [place] [address] Kd Perez MD [address] [place] [address] Health Maintenance Due Date Last Done Comments ARLEY 12/01/2016 COLON CANCER SCREENING 5 YEA R SIGMOIDOSCOPY 12/01/2016 COLONOSCOPY 12/01/2016 COLORECTAL CANCER SCREENING 12/01/2016 CT COLONOGRAPHY 12/01/2016 FECAL OCCULT BLOOD TEST 12/01/2016 FIT Testing (1 year) 12/01/2016 Pneumococcal Vaccine 50+ (1 of 1 - PCV) 12/01/2021 ZOSTER VACCINE (1 of 2) 12/01/2021 ANNUAL PHYSICAL 12/22/2023 HEPATITIS C SCREENING 12/22/2023 INFLUENZA VACCINE 02/22/2025 04/25/2020, , 05/31/2017 TDAP/TD VACCINES (2 - Td or Tdap) 07/08/[address] [place] [address] EMPLOYEE Member Subscriber Plan / Payer (Ef fective 2019-Present) Name:Rudolph Rodrigues Relation to Subscriber:Self Name:Rudolph Rodrigues Payer ID:[id number] (NAIC) Type:Not on file Address: [facility] [address] [place] [id number] Care Teams Firer Marine Relationship Specialty Start Date End Date Cornell Irby MD [address] [place] [address] [place] [address] PCP - General Family Medicine 12/09/23
--- OUTSIDE RECORDS SUMMARY | 2025-04-26 10:47 | XMS_ITS | Encounter Summary ---
Author Organization [facility] Address [address] [place] [address] Care Team Providers Care Apprentice Architect Name Role Phone Cornell Irby MD Primary Care Provider [phone]- [phone] Reason for Visit * Reason Comments Med Refill Encounter Details Date Type Department Care Team (Late st Contact Info) Description 03/22/2025 Refill [facility] UR[facility]Y [address] [facility] [address] [place] [address] Kd Perez MD [address] [place] [address] OAB (overactive bladder) Social History Tobacco Use Types Packs/Day Years Used Date Smoking Tobacco: Former Cigars Passive Smoke Exposure: Current Smokeless Tobacco: Current Snuff Alcohol Use Standard Drinks/Week Comments Yes 8 [...] or training? Not on file Preferred Language Tajik 08/14/2024 Sex and Gender Information Value Date Recorded Sex Assigned at Not on file Legal Sex Male 2:11 PM EST Gender Identity Not on file Sexual Orientation Not on file documented as of this encounter Miscellaneous Notes * Telephone Encounter - Natalia Rose MA - 03/26/2025 8:49 AM EDT Rx Refill Note Requested Prescriptions Pending Prescriptions Disp Refills Mirabegron ER (MYRBETRIQ) 25 MG tablet sustained-release 24 hour 24 hr tablet [Pharmacy Med Name: MIRABEGRON ER 25 MG TABLET] 30 tablet 1 Sig: TAKE 1 TABLET BY MOUTH DAILY. Last office visit with prescribing clinician: 12/14/2024 Next office visit with prescribing clinician: 07/05/2025 Natalia Rose MA 03/26/25, 08:49 EDT documented in this encounter Plan of Treatment Upcoming Encounters Date Type Department Care Team (Late st Contact Info) Description 07/05/2025 10:00 AM EST Office Visit [facility] [address] [facility] [address] [place] [id number] Kd Perez MD [address] [facility] [address] [place] [address] documented as of this encounter Visit Diagnoses Diagnosis OAB (overactive bladder) documented in this encounter Care Teams Apprentice Architect Relationship Specialty Start Date End Date Cornell Irby MD [address] [place] [address] [place] [address] PCP - General Family Medicine 12/09/23 documented as of this encounter
[2025-04-27 08:13] LABS: Hepatitis B Surface Antigen Negative (Negative)
== END 2025-04-25 23:59 | disposition home or self-care (01) ==
LOC: LAB.DROPOF 04-26 10:44
PROVIDERS: PCP Family Medicine; Visit Provider Family Medicine
DX: Z11.4 Encounter for screening for human immunodeficiency virus [HIV] (principal); Z11.59 Encounter for screening for other viral diseases; E03.9 Hypothyroidism, unspecified; R73.03 Prediabetes; E78.5 Hyperlipidemia, unspecified
CPT/HCPCS: 80053; 83036; 84443; 85025; 86803; 87340; 87389